=== PATIENT | male | born 1995 | race Two or more races ===

== ENCOUNTER 2022-01-22 17:00 | Emergency (ER) | payer SELFPAY ==
[~2022-01-22] VITALS: Ht 162.6 cm; Wt 68.0 kg
--- NOTE | 2022-01-22 17:42 | NUR ---
DR MEIER W/ PT FOR JARETTAL
[2022-01-22] MEDS ORDERED: CARI350T PO (17:45)
[2022-01-22] MEDS ORDERED: KETOROLAC TROMETHAMINE INJ 30 MG/ML VIAL ONE (17:48)
--- NOTE | 2022-01-22 17:54 | NUR ---
TORADOL IM GIVEN ON RIGHT DELTOID.
--- NOTE | 2022-01-22 17:56 | NUR ---
Patient discharged to home in stable condition. Written and verbal after care instructions given. Patient verbalizes understanding of instruction.
[2022-01-22 17:57] VITALS: BP 104/70
[2022-01-22] MEDS ORDERED: KETOROLAC TROMETHAMINE INJ 60 MG/2 ML VIAL IM ONE (18:00)
== END 2022-01-22 17:58 | disposition home or self-care (01) ==
LOC: ER 17:17
DX: M54.50 Low back pain, unspecified (principal); Z79.899 Other long term (current) drug therapy
CPT/HCPCS: 99283; 96372; J1885